=== PATIENT | male | born 1945 ===

== ENCOUNTER 2022-10-13 12:22 | Outpatient (CLI) | payer MEDICARE, OTHER | END 2022-10-13 12:23 | disposition home or self-care (01) | LOC: SCSMRI 12:22 | PROVIDERS: ATTEND Internal Medicine Hematology & Oncology | DX: M54.2 Cervicalgia (principal); M54.9 Dorsalgia, unspecified; R51.9 Headache, unspecified; R20.2 Paresthesia of skin; C90.01 Multiple myeloma in remission; C18.7 Malignant neoplasm of sigmoid colon; D50.9 Iron deficiency anemia, unspecified; M47.812 Spondylosis without myelopathy or radiculopathy, cervical region; M48.02 Spinal stenosis, cervical region; I67.82 Cerebral ischemia; M89.9 Disorder of bone, unspecified | CPT/HCPCS: 70553; 72156 ==